=== PATIENT | female | born 1985 | race Caucasian/White ===

== ENCOUNTER 2024-12-25 19:46 | Inpatient (IN) | payer BC, OTHER ==
[~2024-12-25] VITALS: Ht 160 cm; Wt 121.1 kg
[2024-12-25] MEDS ORDERED: IV NS 0.9% 250 ML IV ONE (20:44)
[2024-12-25] MEDS ORDERED: IOHEXOL-350 100 ML VIAL IV ONE (20:44)
[2024-12-25 20:56] LABS: PLATELET COUNT (AUTO) 299 K/uL (150-450); RED BLOOD CELL COUNT(AUTO) 6.00 MIL/uL (4.0-5.2); RED CELL DISTRIBUTION WIDTH 31.8 % (11.5-15.0); WHITE BLOOD COUNT (AUTO) 11.8 K/uL (4.3-11.0)
[2024-12-25 21:09] LABS: INR 0.99 (0.91-1.10)
[2024-12-25 21:12] LABS: CALCIUM, SERUM 8.9 mg/dL (8.5-10.1); CREATININE 0.9 mg/dL (0.6-1.3); SODIUM SERUM 141 mmol/L (136-145); UREA NITROGEN, BLOOD 8 mg/dL (7-18)
[2024-12-25 21:15] LABS: EOSINOPHILS % (MANUAL) 3 % (0-4); LYMPHOCYTES % (MANUAL) 18 % (16-48); MONOCYTES % (MANUAL) 2 % (0-11.0); NEUTROPHILS % (MANUAL) 77 (42-76); PLATELET ESTIMATE ADEQUATE; PREGNANCY TEST SERUM QUAN 0.0 mIU/mL (0-6)
[2024-12-25 21:17] LABS: ASPARTATE AMINOTRANSFERASE 17 U/L (15-37); TOTAL PROTEIN, SERUM 7.2 g/dL (6.4-8.2)
[2024-12-25] MEDS ORDERED: ASPIRIN 81 MG TAB.CHEW ONE (22:25)
[2024-12-25] MEDS: IV NS 0.9% 1,000 ML BAG IV ONE (22:35)
[2024-12-25] MEDS: ASPIRIN 81 MG TAB.CHEW PO ONE (22:35)
[2024-12-25 22:52] VITALS: BP 141/86; TEMP 97.9; O2SAT 97
[2024-12-25] MEDS ORDERED: ONDANSETRON HCL/PF 4 MG/2 ML VIAL IVP PRN (23:30)
[2024-12-25] MEDS ORDERED: MAGNESIUM HYDROXIDE 30 ML UDC PO PRN (23:30)
[2024-12-25] MEDS ORDERED: MAG HYDROX/AL HYDROX/SIMETH 30 ML UDC PO PRN (23:30)
[2024-12-25] MEDS: ENOXAPARIN SODIUM 40 MG/0.4 ML DISP.SYRIN SQ SCH (23:36)
[2024-12-25] MEDS: BLOOD SUGAR DIAGNOSTIC 1 EACH STRIP IN SCH (23:37)
[2024-12-26] VITALS: BP 118/79; TEMP 97.5; O2SAT 98
[2024-12-26 00:59] LABS: ASPARTATE AMINOTRANSFERASE 12.0 U/L (15-37); CALCIUM, SERUM 9.0 mg/dL (8.5-10.1); CREATININE 0.9 mg/dL (0.6-1.3); SODIUM SERUM 140.0 mmol/L (136-145); TOTAL PROTEIN, SERUM 6.6 g/dL (6.4-8.2); UREA NITROGEN, BLOOD 7.0 mg/dL (7-18)
[2024-12-26 01:07] LABS: LDL 130.0 mg/dL (0-99)
[2024-12-26] MEDS: AZITHROMYCIN 250 MG TABLET PO ONE (02:48)
[2024-12-26 04:00] VITALS: BP 124/76; TEMP 97.9; O2SAT 96
[2024-12-26 04:44] VITALS: BP 124/76; TEMP 97.9; O2SAT 96
[2024-12-26 07:11] LABS: PLATELET COUNT (AUTO) 268 K/uL (150-450); RED BLOOD CELL COUNT(AUTO) 5.65 MIL/uL (4.0-5.2); RED CELL DISTRIBUTION WIDTH 32.0 % (11.5-15.0); WHITE BLOOD COUNT (AUTO) 9.6 K/uL (4.3-11.0)
[2024-12-26 07:30] LABS: CALCIUM, SERUM 9.2 mg/dL (8.5-10.1); CREATININE 0.8 mg/dL (0.6-1.3); SODIUM SERUM 143.0 mmol/L (136-145); UREA NITROGEN, BLOOD 7.0 mg/dL (7-18)
[2024-12-26 08:00] VITALS: BP 130/93; TEMP 97.5; O2SAT 98
[2024-12-26 08:04] LABS: IRON, SERUM 27.0 ug/dl (50-175)
[2024-12-26] MEDS: ASPIRIN 81 MG TAB.CHEW PO SCH (08:13)
[2024-12-26] MEDS: PANTOPRAZOLE 40 MG TABLET.DR PO SCH (08:13)
[2024-12-26] MEDS ORDERED: BACI1CAP6 PO (08:24)
[2024-12-26] MEDS ORDERED: CAYE450C5 PO (08:24)
[2024-12-26] MEDS ORDERED: NORE0.3513 PO (08:24)
[2024-12-26] MEDS ORDERED: MULT-594 PO (08:24)
[2024-12-26] MEDS ORDERED: FERR325T23 PO (08:24)
[2024-12-26] MEDS ORDERED: CHOL100062 PO (08:24)
[2024-12-26] MEDS: ACETAMINOPHEN 325 MG TABLET PO PRN (10:07)
[2024-12-26 16:00] VITALS: BP 121/87; TEMP 97.9; O2SAT 99
[2024-12-26 20:00] VITALS: BP 125/81; TEMP 98.2; O2SAT 99
[2024-12-27] VITALS: BP 131/86; TEMP 98.2; O2SAT 98
[2024-12-27] MEDS: AZITHROMYCIN 250 MG TABLET PO SCH (03:57)
[2024-12-27 04:00] VITALS: BP 130/79; TEMP 98.1; O2SAT 100
[2024-12-27 06:57] LABS: CALCIUM, SERUM 8.9 mg/dL (8.5-10.1); CREATININE 0.9 mg/dL (0.6-1.3); SODIUM SERUM 142.0 mmol/L (136-145); UREA NITROGEN, BLOOD 9.0 mg/dL (7-18)
[2024-12-27 07:18] LABS: PLATELET COUNT (AUTO) 247 K/uL (150-450); RED BLOOD CELL COUNT(AUTO) 5.65 MIL/uL (4.0-5.2); RED CELL DISTRIBUTION WIDTH 31.0 % (11.5-15.0); WHITE BLOOD COUNT (AUTO) 10.0 K/uL (4.3-11.0)
[2024-12-27 08:00] VITALS: BP 125/88; TEMP 97.5; O2SAT 94
== END 2024-12-27 15:52 | disposition home or self-care (01) | DRG 74 ==
LOC: ER 19:51 → TELE 22:26 → MED 12-27 15:43
PROVIDERS: ADMIT Registered Nurse Psychiatric/Mental Health; ATTEND Internal Medicine
DX: G57.91 Unspecified mononeuropathy of right lower limb (principal); R29.700 NIHSS score 0; D50.9 Iron deficiency anemia, unspecified; J32.9 Chronic sinusitis, unspecified; Z82.3 Family history of stroke; Z88.0 Allergy status to penicillin; R20.2 Paresthesia of skin; Z98.891 History of uterine scar from previous surgery
CPT/HCPCS: 36415; 70450-TC; 70496-TC; 70498-TC; 71045-TC; 80048-TC; 80053-TC; 80061-TC; 80076-TC; 82962-TC; 83540-TC; 83735-TC; 84443-TC; 84484-TC; 84702-TC; 85025-TC; 85027-TC; 85652-TC; 85730-TC; 92526; 92611; 93307-TC; 93880-TC; 93971-TC; 97112-TC; 97116-TC; 97535-TC; A4223; G0378; J1650; J7030; J7050; Q9967

== ENCOUNTER 2024-12-28 16:44 | Emergency (ER) | payer BC ==
[~2024-12-28] VITALS: Ht 157.5 cm; Wt 97.5 kg
[~2024-12-28 16:44] MED LIST: BACI1CAP6 PO; CAYE450C5 PO; CHOL100062 PO; FERR325T23 PO; MULT-594 PO; NORE0.3513 PO
[2024-12-28 16:56] VITALS: TEMP 98.1
[2024-12-28 17:10] LABS: PLATELET COUNT (AUTO) 319 K/uL (150-450); RED BLOOD CELL COUNT(AUTO) 5.97 MIL/uL (4.0-5.2); RED CELL DISTRIBUTION WIDTH 31.0 % (11.5-15.0); WHITE BLOOD COUNT (AUTO) 12.9 K/uL (4.3-11.0)
[2024-12-28 17:16] LABS: APPEARANCE,URINE SLIGHTLY CLOUDY (CLEAR); BLOOD, URINE NEGATIVE Ery/uL (NEGATIVE); LEUKOCYTE ESTERASE ,URINE NEGATIVE (NEGATIVE); NITRITE, URINE NEGATIVE (NEGATIVE); PREGNANCY TEST URINE QUAL NEGATIVE (NEGATIVE); UGLUCOSE NEGATIVE (NEGATIVE)
[2024-12-28 17:21] LABS: CALCIUM, SERUM 8.9 mg/dL (8.5-10.1); CREATININE 1.0 mg/dL (0.6-1.3); SODIUM SERUM 138.0 mmol/L (136-145); UREA NITROGEN, BLOOD 10.0 mg/dL (7-18)
[2024-12-28 17:24] LABS: ADD URINE CULTURE NO
[2024-12-28 19:41] VITALS: BP 125/80; O2SAT 99
== END 2024-12-28 19:32 | disposition home or self-care (01) ==
LOC: ER 16:54
DX: R10.9 Unspecified abdominal pain (principal); R20.0 Anesthesia of skin; Z88.0 Allergy status to penicillin; Z86.79 Personal history of other diseases of the circulatory system; Z60.2 Problems related to living alone
CPT/HCPCS: 36415; 80048-TC; 81001; 84703-TC; 85025-TC

== ENCOUNTER 2025-01-03 10:17 | Emergency (ER) | payer BC ==
[~2025-01-03] VITALS: Ht 160 cm; Wt 98.0 kg
[2025-01-03 10:51] LABS: PLATELET COUNT (AUTO) 337 K/uL (150-450); RED BLOOD CELL COUNT(AUTO) 6.03 MIL/uL (4.0-5.2); RED CELL DISTRIBUTION WIDTH 31.0 % (11.5-15.0); WHITE BLOOD COUNT (AUTO) 10.0 K/uL (4.3-11.0)
[2025-01-03 10:59] LABS: CALCIUM, SERUM 9.2 mg/dL (8.5-10.1); CREATININE 0.9 mg/dL (0.6-1.3); SODIUM SERUM 139 mmol/L (136-145); UREA NITROGEN, BLOOD 8 mg/dL (7-18)
[2025-01-03 12:49] VITALS: BP 122/73; TEMP 98.1; O2SAT 96
== END 2025-01-03 12:50 | disposition home or self-care (01) ==
LOC: ER 10:25
DX: R07.89 Other chest pain (principal); R06.02 Shortness of breath; Z88.0 Allergy status to penicillin
CPT/HCPCS: 36415; 71045-TC; 80048-TC; 83880; 84484-TC; 84703-TC; 85025-TC; 85378-TC

== ENCOUNTER 2025-03-12 19:42 | Emergency (ER) | payer BC ==
[~2025-03-12] VITALS: Ht 160 cm; Wt 94.3 kg
[2025-03-12] MEDS ORDERED: KETOROLAC TROMETHAMINE INJ 30 MG/ML VIAL ONE (20:17)
[2025-03-12] MEDS: KETOROLAC TROMETHAMINE INJ 30 MG/ML VIAL IM ONE (20:18)
[2025-03-12 21:33] VITALS: BP 142/86; TEMP 97.9; O2SAT 95
== END 2025-03-12 22:20 | disposition home or self-care (01) ==
LOC: ER 19:43
DX: R00.2 Palpitations (principal); K08.89 Other specified disorders of teeth and supporting structures; I50.9 Heart failure, unspecified; Z88.0 Allergy status to penicillin
CPT/HCPCS: 99283; 96372; 93005; J1885

== ENCOUNTER 2025-03-31 11:06 | Emergency (ER) | payer BC ==
[~2025-03-31] VITALS: Ht 160 cm; Wt 95.3 kg
[2025-03-31 11:57] LABS: PLATELET COUNT (AUTO) 268 K/uL (150-450); RED BLOOD CELL COUNT(AUTO) 5.24 MIL/uL (4.0-5.2); RED CELL DISTRIBUTION WIDTH 17.7 % (11.5-15.0); WHITE BLOOD COUNT (AUTO) 10.3 K/uL (4.3-11.0)
[2025-03-31 12:14] LABS: CALCIUM, SERUM 9.0 mg/dL (8.5-10.1); CREATININE 0.7 mg/dL (0.6-1.3); SODIUM SERUM 139 mmol/L (136-145); UREA NITROGEN, BLOOD 7 mg/dL (7-18)
[2025-03-31 14:53] VITALS: BP 137/87; TEMP 98.6; O2SAT 99
== END 2025-03-31 14:55 | disposition home or self-care (01) ==
LOC: ER 11:12
DX: R07.89 Other chest pain (principal); D64.9 Anemia, unspecified; R00.2 Palpitations; I50.9 Heart failure, unspecified; Z88.0 Allergy status to penicillin
CPT/HCPCS: 36415; 71045-TC; 80048-TC; 84443-TC; 84484-TC; 85025-TC

== ENCOUNTER 2025-04-24 08:51 | Emergency (ER) | payer BC ==
[~2025-04-24] VITALS: Ht 160 cm; Wt 94.3 kg
[2025-04-24 09:58] LABS: PLATELET COUNT (AUTO) 288 K/uL (150-450); RED BLOOD CELL COUNT(AUTO) 5.26 MIL/uL (4.0-5.2); RED CELL DISTRIBUTION WIDTH 16.7 % (11.5-15.0); WHITE BLOOD COUNT (AUTO) 8.7 K/uL (4.3-11.0)
[2025-04-24 10:05] LABS: CALCIUM, SERUM 8.8 mg/dL (8.5-10.1); CREATININE 0.7 mg/dL (0.6-1.3); SODIUM SERUM 139 mmol/L (136-145); UREA NITROGEN, BLOOD 8 mg/dL (7-18)
[2025-04-24 10:20] LABS: NT-PRO BNP 26 pg/mL (0-125)
[2025-04-24] MEDS ORDERED: KETOROLAC TROMETHAMINE INJ 30 MG/ML VIAL ONE (11:19)
[2025-04-24] MEDS ORDERED: BACLOFEN (10 MG) 10 MG TABLET ONE (11:19)
[2025-04-24] MEDS ORDERED: dexaMETHasone SOD PHOSPHATE 1 ML ONE (11:19)
[2025-04-24] MEDS: dexaMETHasone SOD PHOSPHATE 10 MG/ML VIAL IV ONE (11:24)
[2025-04-24] MEDS: KETOROLAC TROMETHAMINE INJ 30 MG/ML VIAL IV ONE (11:25)
[2025-04-24] MEDS: BACLOFEN (10 MG) 10 MG TABLET PO ONE (11:26)
[2025-04-24] MEDS ORDERED: KETO10TA2 PO (12:21)
[2025-04-24] MEDS ORDERED: BACL10TA PO (12:21)
[2025-04-24 12:36] VITALS: BP 102/77; TEMP 98.5; O2SAT 97
== END 2025-04-24 12:37 | disposition home or self-care (01) ==
LOC: ER 09:08
DX: R07.89 Other chest pain (principal); I50.9 Heart failure, unspecified; R06.02 Shortness of breath; Z88.0 Allergy status to penicillin; Z79.899 Other long term (current) drug therapy; Z60.2 Problems related to living alone
CPT/HCPCS: 99285; 96374; 71045; 96375; 93005; 85025; 80048; 36415; 84484; 83880; J1885; J1100